=== PATIENT | female | born 1975 | race Caucasian/White ===

== ENCOUNTER 2020-05-25 07:09 | Emergency (ER) | payer OTHER, BC | END 2020-05-25 10:10 | disposition home or self-care (01) | LOC: ER1 07:09 | DX: M79.641 Pain in right hand (principal) | CPT/HCPCS: 29130; 73130; 99283 ==

== ENCOUNTER 2020-08-06 18:09 | Inpatient (IN) | payer BC ==
[~2020-08-06] VITALS: Ht 175.3 cm; Wt 52.6 kg
[2020-08-06 19:41] LABS: HEMOGLOBIN 13.9 gm/dl (12.3-15.3); RED BLOOD COUNT 4.15 M/UL (4.00-5.10); WHITE BLOOD COUNT 7.4 K/UL (4.5-11.0)
[2020-08-06 20:25] LABS: BUN/CREATININE RATIO 8 (0-10)
[2020-08-06] MEDS ORDERED: VITAMIN D31250 MCG PO (22:57)
[2020-08-06] MEDS ORDERED: ZYRTEC10 MG PO (22:58)
[2020-08-06] MEDS ORDERED: IBUPROFEN800 MG PO (22:59)
--- NOTE | 2020-08-07 10:51 | NUR ---
seen patient and aware of cxray result.
--- NOTE | 2020-08-07 15:47 | NUR ---
reported to dr. garcia patient's complain of itching on her chest tube site surrounding area. pink in color and denies pain. received new order
--- NOTE | 2020-08-07 17:18 | NUR ---
patient sleeping comfortably at this time.
== END 2020-08-08 17:52 | disposition home or self-care (01) | DRG 201 ==
LOC: ER1 18:09 → CDU 22:11 → M/S 08-07 00:59
PROVIDERS: Emergency Medicine; ADMIT Surgery
DX: J93.83 Other pneumothorax (principal); R07.9 Chest pain, unspecified; Z87.891 Personal history of nicotine dependence; Z88.0 Allergy status to penicillin; Z88.8 Allergy status to other drugs, medicaments and biological substances
CPT/HCPCS: 0240U; 32551; 71045; 71046; 80053; 82550; 82553; 83735; 83874; 84484; 84703; 85025; 93005; 96374; 96375; 99285; C1729; G0378; J2060; J2270; J2405

== ENCOUNTER → 2020-09-11 | Outpatient (CLI) | payer BC ==
[~2020-09-11] MED LIST: IBUPROFEN800 MG PO; VITAMIN D31250 MCG PO; ZYRTEC10 MG PO
== END ==
LOC: RAD 13:51
DX: J93.9 Pneumothorax, unspecified (principal)
CPT/HCPCS: 71046

== ENCOUNTER 2021-01-09 17:57 | Emergency (ER) | payer BC ==
[2021-01-09 19:06] LABS: HEMOGLOBIN 13.5 gm/dl (12.3-15.3); RED BLOOD COUNT 4.04 M/UL (4.00-5.10); WHITE BLOOD COUNT 7.3 K/UL (4.5-11.0)
[2021-01-09 19:23] LABS: BUN/CREATININE RATIO 10 (0-10)
[2021-01-09 19:24] LABS: BORDETELLA PARAPERTUSSIS Not Detected (Not Detectd); BORDETELLA PERTUSSIS Not Detected (Not Detectd); CHLAMYDIA PNEUMONIAE Not Detected (Not Detectd); CORONAVIRUS HKU1 Not Detected (Not Detectd); CORONAVIRUS NL63 Not Detected (Not Detectd); CORONAVIRUS OC43 Not Detected (Not Detectd); CORONOAVIRUS 229E Not Detected (Not Detectd); HUMAN METAPNEUMOVIRUS Not Detected (Not Detectd); HUMAN RHINOVIRUS/ENTEROVIRUS Not Detected (Not Detectd); INFLUENZA A Not Detected (Not Detectd); INFLUENZA B Not Detected (Not Detectd); MYCOPLASMA PNEUMONIAE Not Detected (Not Detectd); PARAINFLUENZA VIRUS 1 Not Detected (Not Detectd); PARAINFLUENZA VIRUS 2 Not Detected (Not Detectd); PARAINFLUENZA VIRUS 3 Not Detected (Not Detectd); PARAINFLUENZA VIRUS 4 Not Detected (Not Detectd); RESPIRATORY SYNCYTIAL VIRUS Not Detected (Not Detectd)
[2021-01-09 20:22] LABS: SARS-CoV-2 NOT DETECTED (Not Detectd)
[2021-01-10 17:56] LABS: HEMOGLOBIN 12.5 gm/dl (12.3-15.3); RED BLOOD COUNT 3.72 M/UL (4.00-5.10); WHITE BLOOD COUNT 6.8 K/UL (4.5-11.0)
[2021-01-10 18:16] LABS: BUN/CREATININE RATIO 12 (0-10)
== END 2021-01-10 22:10 | disposition short-term general hospital (02) ==
LOC: ER1 17:57
PROVIDERS: Emergency Medicine; Physician Assistant Medical
DX: J93.9 Pneumothorax, unspecified (principal); Z87.891 Personal history of nicotine dependence; Z88.0 Allergy status to penicillin; Z88.1 Allergy status to other antibiotic agents; Z20.822 Contact with and (suspected) exposure to COVID-19
CPT/HCPCS: 32551; 71045; 71046; 71260; 80053; 85025; 87633; 99152; 99285; J1170; J1885; J2270; J2405; J2704; Q9967

== ENCOUNTER → 2021-02-20 | Outpatient (CLI) | payer BC | LOC: KOH-I 09:43 | DX: R79.89 Other specified abnormal findings of blood chemistry (principal) | CPT/HCPCS: 76705 ==